=== PATIENT | male | born 1955 | race Caucasian/White ===

== ENCOUNTER 2021-10-03 10:34 | Emergency (ER) | payer MEDICARE, BC | END 2021-10-03 12:10 | disposition home or self-care (01) | LOC: ER1 10:34 | DX: S89.91XA Unspecified injury of right lower leg, initial encounter (principal); I10 Essential (primary) hypertension; E78.5 Hyperlipidemia, unspecified; X50.1XXA Overexertion from prolonged static or awkward postures, initial encounter | CPT/HCPCS: 73560; 96372; 99283; J1885 ==

== ENCOUNTER 2022-02-25 10:08 | Emergency (ER) | payer BC ==
[2022-02-25] MEDS ORDERED: DOXYCYCLINE MO100 MG PO (12:57)
== END 2022-02-25 13:09 | disposition home or self-care (01) ==
LOC: ER1 10:08
DX: J18.1 Lobar pneumonia, unspecified organism (principal)
CPT/HCPCS: 71046; 99283